=== PATIENT | male | born 2000 | race Hispanic/Latino ===

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

== ENCOUNTER 2024-09-02 09:54 | Emergency (ER) | payer MEDICAID, OTHER ==
[~2024-09-02] VITALS: Ht 172.7 cm; Wt 85.7 kg
--- NOTE | 2024-09-02 10:28 | ERN ---
General Chief Complaint: Multiple Complaints Stated Complaint: MULTIPLE COMPLAINTS Time Seen by MD: 09:56 Source: patient History of Present Illness Initial Comments PATIENT IS A 24-YEAR-OLD MALE COMING IN TO BE EVALUATED THE PATIENT FOUR DAYS AGO SHE WAS IN HIS URI SYMPTOMS WHICH INCLUDES IN HIS CONGESTION AND SORE THROAT. HE ALSO STATES HE WAS HAS A HEADACHE. ALONG WITH THIS PATIENT STATES THAT HE HAS BEEN HAVING CHEST DISCOMFORT. Allergies: Coded Allergies: No Known Drug Allergies (Unverified Allergy, Unknown, 09/02/24) Past Medical History Past Medical History: No Pertinent History Past Surgical History: None ROS Dictation CONSTITUTIONAL: NO CHILLS, NO FEVER, NO WEAKNESS, NO DIAPHORESIS, NO MALAISE. HEAD/FACE: NO SIGNS OF TRAUMA. EENT: NO EYE PAIN, NO BLURRED VISION, NO TEARING, NO DOUBLE VISION, NO EAR PAIN, NO EAR DISCHARGE, NO NOSE PAIN, NASAL CONGESTION, THROAT PAIN, NO THROAT SWELLING, NO MOUTH PAIN. RESPIRATORY: NO COUGH, NO ORTHOPNEA, NO SOB, NO STRIDOR, NO WHEEZING. CARDIOVASCULAR: CHEST PAIN, NO EDEMA, NO PALPITATIONS, NO SYNCOPE. GASTROINTESTINAL/ABDOMINAL: NO ABDOMINAL PAIN, NO CONSTIPATION, NO DIARRHEA, NO NAUSEA, NO VOMITING. GENITOURINARY: NO ABNORMAL DISCHARGE, NO DYSURIA, NO FREQUENT URINATION, NO HEMATURIA. NO COMPLAINTS OF PAIN IN THE GENITALS. MUSCULOSKELETAL: NO BACK PAIN, NO GOUT, NO JOINT PAIN, NO JOINT SWELLING, NO MUSCLE PAIN, NO MUSCLE STIFFNESS, NO NECK PAIN. INTEGUMENTARY: NO CHANGE IN COLOR, NO CHANGE IN HAIR/NAILS, NO DRYNESS, NO LESION, NO LUMPS, NO RASH. NEUROLOGICAL/PSYCH: NO ANXIETY, NOT DEPRESSED, NO EMOTIONAL PROBLEM, NO HEADACHE, NO NUMBNESS, NO PRE-EXISTING DEFICIT, NO HISTORY OF SEIZURES, NO TREMORS, NO WEAKNESS. HEMATOLOGIC/LYMPHATIC: NOT ANEMIC, NO HISTORY OF BLOOD CLOTS, NO APPARENT BLEEDING, NO BRUISING, GLANDS NOT SWOLLEN. ALL SYSTEMS NEGATIVE, EXCEPT NOTED. Physical Exam Physical Exam Dictation VITAL SIGNS: REVIEWED. GENERAL APPEARANCE: ALERT, ORIENTED X3, NO ACUTE DISTRESS, OBESE. HEAD AND FACE: NON-TRAUMATIC. EYES: PERRL, PINK CONJUNCTIVAS, EYELID NO TRAUMA, ANTERIOR CHAMBER CLEAR. EARS: PINNAS INTACT AND NO SIGNS OF TRAUMA OR ERYTHEMA. EAR CANALS CLEAR AND NO DISCHARGE. TMS NO ERYTHEMA. NOSE: NO DISCHARGE, NO BLEEDING. OROPHARYNX: MOUTH NORMAL, TEETH NO CARIES, TONGUE PINK. PHARYNX ERYTHEMA. TONSILS NO EXUDATES, NO ABSCESSES NOTED. MUCOUS MEMBRANE MOIST. NECK: SUPPLE, NON-TENDER, NO THYROMEGALY, NO MASSES, NO JVD, NO BRUITS. BREAST: DEFERRED. CHEST: NO TENDERNESS, NO CREPITUS, NO PARADOXICAL MOVEMENT, NO RETRACTIONS. LUNGS: CLEAR, WELL-VENTILATED, SYMMETRIC, NO RALES, NO WHEEZING, NO RHONCHI, NO STRIDOR, GOOD BREATH SOUNDS BILATERALLY. HEART: REGULAR RATE, REGULAR RHYTHM, NO MURMUR, NO GALLOPS. VASCULAR: NO PERIPHERAL EDEMA. ABDOMEN: SOFT, POSITIVE BOWEL SOUNDS, NONDISTENDED, NO GUARDING, NONTENDER, NO REBOUND, NO MASSES NO HEPATOMEGALY, NO SPLENOMEGALY, NO OROZCO'S SIGN, NO HERNIAS. RECTAL: DEFERRED. GENITAL: DEFERRED. NEUROLOGICAL: NORMAL SPEECH, GROSS MOTOR FUNCTION INTACT, GROSS SENSORY FUN CTION INTACT. MUSCULOSKELETAL: NECK NONTENDER, FULL RANGE OF MOTION, BACK NONTENDER, FULL RANGE OF MOTION. EXTREMITIES: NONTENDER, FULL RANGE OF MOTION. SKIN: COLOR PINK, DRY, NO TURGOR, NO RASH, NO LACERATIONS, NO ABRASIONS, NO CONTUSIONS. LYMPHATICS: DEFERRED. Results Laboratory and Microbiology Lab and Micro Result Laboratory Tests Test 09/02/24 10:41 Influenza Type A Antigen Negative For Type A Influenza Type B Antigen Positive For Type B SARS-CoV-2, RNA, NAAT NEGATIVE SARS CoV-2 Group A Streptococcus Rapid positive (NEGATIVE) *A Labs Reviewed?: Yes EKG/XRAY/US/CT/MRI EKG Comment 09/02/2024 TIME 10:24 A.M. VENTRICULAR RATE 89 SINUS RHYTHM PA [address] WAVE ELEVATION OR DEPRESSION MDM MDM: Differential diagnosis: URI, strep, flu, Patient is a 24-year-old male in complaining URI symptoms patient states that began a couple of days symptoms include sore throat nasal congestion chest discomfort. Laboratory workup positive for strep and flu B. Patient will be discharged in stable condition with a diagnosis of influenza B and strep pharyngitis. Medication will be provided I did advise patient appropriate follow up with PCP to continue monitoring symptoms vital signs within normal limits. ED Course Orders Procedure Category Date Status Time 12 Lead Ekg Tracing- EKG 09/02/24 Logged Technical 10:03 Covid Rna Naat LAB 09/02/24 In Process 10:03 Influenza Type A & B, LAB 09/02/24 In Process Rapid 10:03 Rapid (Group A Strep) LAB 09/02/24 In Process 10:03 Acetaminophen 500mg PHA 09/02/24 Complete Tab (Tylenol 500mg T 10:30 12 Lead Ekg Tracing- EKG 09/02/24 Logged Technical 10:03 Current Medications Medications (Trade) Dose Ordered Sig/Brooks Route PRN Reason Start Time Stop Time Status Last Admin Dose Admin Acetaminophen (TYLenol 500MG TAB) 1,000 mg ONCE ONCE PO 09/02/24 10:30 09/02/24 10:31 DC Vital Signs Date Time Temp Pulse Resp B/P (MAP) Pulse Ox O2 Delivery O2 Flow Rate FiO2 09/02/24 09:55 99.1 81 14 114/77 97 Room Air 0 DX & DISP Disposition: Discharge Departure Impression: Primary Impression: Influenza B Additional Impression: Strep pharyngitis Condition: Stable Scripts Amoxicillin (Amoxicillin) 500 Mg Capsule 1 CAP PO TID for 10 Days, #30 CAP 0 Refills Prov: SHIRLEY BONILLA MD 09/02/24 Oseltamivir Phosphate (Tamiflu) 75 Mg Cap 1 CAP PO BID for 5 Days, #10 CAP 0 Refills Prov: SHIRLEY BONILLA MD 09/02/24 Additional Instructions: FOLLOW-UP WITH PRIMARY CARE PROVIDER IN 1 TO 2 DAYS. TAKE MEDICATIONS DIRECTED HERE IN THE EMERGENCY ROOM. OKAY TO CONTINUE HOME MEDICATIONS UNLESS OTHERWISE DISCUSSED DURING YOUR VISIT IN THE EMERGENCY ROOM TODAY. RETURN TO YOUR NEAREST EMERGENCY ROOM IF SYMPTOMS WORSEN OR IF THERE IS NO IMPROVEMENT. CALL 911 IF YOU NEED IMMEDIATE ASSISTANCE. TAKE TYLENOL [id number] NEEDED AND IF NO CONTRAINDICATIONS ARE PRESENT. INCREASE ORAL HYDRATION. A WOUND CULTURE OR URINE CULTURE WAS ORDERED HERE IN THE EMERGENCY ROOM DEPARTMENT PLEASE FOLLOW-UP WITH PRIMARY CARE PROVIDER AND ADVISE THEM TO GET REPEAT PORTS FROM OUR FACILITY. IF YOU HAD ANY HENRY WRAP/SPLINTS THAT WERE APPLIED HERE, PLEASE DO NOT REMOVE THEM UNTIL YOU SEE YOUR PRIMARY CARE OR SPECIALTY. Referrals: Referrals: ANI BROOKS (PCP) Time of Disposition: 11:18 SHIRLEY BONILLA MD Sep 02, 2024 10:28
[2024-09-02 10:59] LABS: SARS-CoV-2, RNA, NAAT NEGATIVE SARS CoV-2 (NEGATIVE)
[2024-09-02 11:07] LABS: INFLUENZA TYPE A Negative For Type A (NEGATIVE)
[2024-09-02 11:16] LABS: RAPID GROUP A STREP positive (NEGATIVE)
[2024-09-02 11:17] LABS: INFLUENZA TYPE B Positive For Type B (NEGATIVE)
[2024-09-02] MEDS ORDERED: OSEL75 PO (11:19)
[2024-09-02] MEDS ORDERED: AMOX500C2 PO (11:19)
[2024-09-02] MEDS: acetaMINOPHEN 500 MG TABLET PO ONE (11:58)
[2024-09-02 12:02] VITALS: BP 103/72; PULSE 90; RESP 16; TEMP 98.9; O2SAT 95
--- NOTE | 2024-09-02 12:55 | HMCIMG ---
INDICATION: cough TECHNIQUE: CHEST 1VW COMPARISON: None FINDINGS AND IMPRESSION: No acute consolidation or pleural effusion. Cardiac silhouette is within normal limits. Mild degenerative changes of the spine. The visualized upper abdomen appears unremarkable.
--- NOTE | 2024-09-02 13:14 | EKG ---
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
== END 2024-09-02 12:04 | disposition home or self-care (01) ==
LOC: EDH 09:54
DX: J10.1 Influenza due to other identified influenza virus with other respiratory manifestations (principal); J02.0 Streptococcal pharyngitis; Z20.822 Contact with and (suspected) exposure to COVID-19
CPT/HCPCS: 71045; 87635; 87804; 87880; 93005; 99285